=== PATIENT | female | born 1980 | race American Indian/Alaskan Native ===

== ENCOUNTER 2018-06-21 09:29 | Day surgery (SDC) | payer MEDICAID ==
[2018-06-21] MEDS ORDERED: ceFAZolin 2 GM in NACL 0.9% 100 ML IV ONE (10:30)
[2018-06-21] MEDS ORDERED: ANCEF/STERILE WATER 2 GM/20 ML 2 GM/20 ML SYRINGE IV NR (11:00)
[2018-06-21] MEDS ORDERED: MARCAINE 0.5% INFILTRATI ONE ×2 (11:09→12:31)
[2018-06-21] MEDS ORDERED: XYLOCAINE 1% 20 mL ONE (11:09)
--- NOTE | 2018-06-21 11:23 | Anesthesia Consultation ---
Anesthesia Consult and Med Hx Date of service: 06/21/18 - Airway Anesthetic Teeth Evaluation: Good ROM Head & Neck: Adequate Mental/Hyoid Distance: Adequate Mallampati Class: Class II Intubation Access Assessment: Probably Good - Pulmonary Exam CTA: Yes - Cardiac Exam Cardiac Exam: RRR - Pre-Operative Health Status ASA Pre-Surgery Classification: ASA3 Proposed Anesthetic Plan: General - Pulmonary Hx Smoking: No Hx Asthma: No COPD: No Hx Pneumonia: No Hx Sleep Apnea: No - Cardiovascular System Hx Hypertension: Yes (2014; took HCTZ this morning) Hx Coronary Artery Disease: No Hx Heart Attack/AMI: No Hx Cardia Arrhythmia: No Hx Peripheral Vascular Disease: No - Central Nervous System Hx Neuromuscular Disorder: No Hx Seizures: No Hx Psychiatric Problems: No - Gastrointestinal Hx Gastroesophageal Reflux Disease: Yes - Endocrine Hx Renal Disease: No Hx End Stage Renal Disease: No Hx Cirrhosis: No Hx Liver Disease: No Hx Insulin Dependent Diabetes: No Hx Non-Insulin Dependent Diabetes: No Hx Hypothyroidism: No Hx Hyperthyroidism: No - Hematic Hx Anemia: No Hx Sickle Cell Disease: No - Other Systems Hx Alcohol Use: No Hx Substance Use: No Hx Cancer: No Hx Obesity: Yes (BMI 46.4) - Additional Comments Anesthesia Medical History Comments: No previous surgery, No FHAC
--- NOTE | 2018-06-21 11:24 | Anesthesia Day of Surgery ---
Anesthesia Day of Surgery - Day of Surgery Patient Examined: Yes Patient H&P Reviewed: Yes Patient is NPO: Yes Beta Blockers: No (n/a) Cardiac Clearance: No (n/a) Pulmonary Clearance: No (n/a)
[2018-06-21] MEDS ORDERED: NEURONTIN PO NR (11:28)
[2018-06-21] MEDS ORDERED: DILAUDID IV PRN (11:49)
[2018-06-21] MEDS ORDERED: BENADRYL ONE (11:57)
[2018-06-21] MEDS ORDERED: DILAUDID ONE (11:57)
[2018-06-21] MEDS ORDERED: DIPRIVAN 10 MG/ML IV ONE (11:58)
[2018-06-21] MEDS ORDERED: LACTATED RINGERS 1,000 ML IV SCH (12:00)
[2018-06-21] MEDS ORDERED: TRANSDERM-SCOP TD NR (12:00)
[2018-06-21] MEDS ORDERED: VERSED IV ONE (12:00)
[2018-06-21] MEDS ORDERED: XYLOCAINE MPF 2% ONE (12:03)
[2018-06-21] MEDS ORDERED: ZEMURON IV ONE (12:03)
[2018-06-21] MEDS ORDERED: XYLOCAINE 1% 20 mL INFILTRATI ONE (12:31)
[2018-06-21] MEDS ORDERED: WATER FOR IRRIG STERILE IR ONE (12:32)
--- NOTE | 2018-06-21 13:20 | Short Stay Summary ---
Short Stay Documentation Date of service: 06/21/18 - History Principal diagnosis: cholelithiasis symptomatic H&P: obtained from office - Allergies and Medications Current Medications: Allergies No Known Allergies Allergy (Verified 06/19/18 16:33) Home Medications Medication Instructions Recorded Confirmed Last Taken Type Aspirin EC [Aspirin Enteric Coated 81 mg PO QDAY 06/19/18 06/19/18 Unknown His tory TAB] Famotidine 20 mg PO BIDAC 06/19/18 06/19/18 Unknown History Ondansetron [Zofran TAB] 4 mg PO Q8HR PRN 06/19/18 06/19/18 Unknown History hydroCHLOROthiazide 12.5 mg PO DAILY 06/19/18 06/19/18 Unknown History [Hydrochlorothiazide] metroNIDAZOLE [Flagyl TAB] 500 mg PO TID 06/19/18 06/19/18 Unknown History Active Medications Hydromorphone HCl (Dilaudid) 0.5 mg IV Q10MIN PRN PRN Reason: Pain , Severe (7-10) Stop: 06/21/18 23:59 Cefazolin Sodium (Ancef/Sterile Water 2 Gm/20 Ml) 2 gm in 20 mls @ 80 mls/hr IV PREOP NR Stop: 06/21/18 16:00 Lactated Ringer's (Lactated Ringers) 1,000 mls @ 100 mls/hr IV DIRECT VIVIANA Last Admin: 06/21/18 11:40 Dose: 100 mls/hr Documented by: Scopolamine (Transderm-Scop) 1 each TD PREOP NR Stop: 06/21/18 20:00 Last Admin: 06/21/18 11:45 Dose: 1 each Documented by: - Brief post op/procedure progress note Date of procedure: 06/21/18 Pre-op diagnosis: calculus of the gallbladder without cholecystitis or obstruction Post-op diagnosis: same Procedure: robotic assisted cholecystectomy Anesthesia: GETA, local Findings: gallbladder with evidence of chronic inflammation and packed with stones Surgeon: ZAMZAM GARY Estimated blood loss: minimal Pathology: list (GALLBLADDER) Specimen disposition: to lab Condition: stable - Hospital course Hospital course: Pt was observed in PACU and discharged to home in stable condition once criteria met - Disposition Condition at discharge: Good Disposition: DC-01 TO HOME OR SELFCARE Short Stay Discharge Plan Activity: other (no heavy lifting, no driving if taking prescription pain medications) Diet: regular Wound: open to air Additional Instructions: SEE PRINTED DISCHARGE INSTRUCTIONS Follow up with: BANDAR GERONIMO MD [Primary Care Provider] - 7 Days ZAMZAM GARY DO [Staff Physician] - 14 Days Prescriptions: HYDROcodone/APAP 5-325 [[place] 5/325] 1 each PO Q6HR PRN #20 tablet PRN Reason: Pain
[2018-06-21] MEDS ORDERED: ROBINUL ONE (13:38)
[2018-06-21] MEDS ORDERED: ZOFRAN ONE (13:38)
[2018-06-21] MEDS ORDERED: BLOXIVERZ ONE (13:38)
[2018-06-21] MEDS ORDERED: NORCO 5/325 ONE (14:57)
--- NOTE | 2018-06-21 14:58 | Post Anesthesia Evaluation ---
- Post Anesthesia Evaluation Patient Participated: Yes Airway Patent: Yes Stable Respiratory Function: Yes Nausea/Vomiting: No Temp > 96.8F: Yes Pain Manageable: Yes Adequeate Hydration: Yes Anesthesia Complications: No
[2018-06-21] MEDS ORDERED: NORCO 5/325 PO PRN (15:00)
[2018-06-21 21:40] VITALS: BP 140/76
--- NOTE | 2018-06-22 18:26 | Operative Report ---
PREOPERATIVE DIAGNOSIS: Calculus of the gallbladder without cholecystitis or obstruction. POSTOPERATIVE DIAGNOSIS: Calculus of the gallbladder without cholecystitis or obstruction. PROCEDURE: Robotic-assisted cholecystectomy. ANESTHESIA: General endotracheal anesthesia, local. FINDINGS: Gallbladder with evidence of chronic inflammation and packed with stones. SURGEON: Shelley Butler DO REGISTERED DIETETIC TECHNICIAN: NORMAN Valentine ESTIMATED BLOOD LOSS: Minimal. PATHOLOGY: Gallbladder. SPECIMEN: Disposition to lab. CONDITION AND DISPOSITION: The patient is stable to PACU. HISTORY OF PRESENT ILLNESS AND INDICATIONS: The patient is a 37-year-old female, who was seen in the office for evaluation of her gallbladder. She was found to have right upper quadrant pain along with imaging findings consistent with cholelithiasis. After a thorough history and review of her labs and imaging, it was recommended that she undergo cholecystectomy. All risks, benefits, alternatives of surgery were discussed with the patient along with the robotic, laparoscopic, open approaches. All questions were answered and consent obtained. PROCEDURE IN DETAIL: The patient was identified in the preoperative area and taken back to the operating room and placed on the operating table in supine position. After anesthesia was induced, bilateral arms were tucked with all bony prominences padded. Abdomen was prepped and draped in the usual sterile fashion and timeout was performed. Local anesthetic was infiltrated into all skin incision sites. A stab incision was made in the left upper quadrant through which a Veress needle was inserted. The Veress needle position was confirmed using the saline drop test and the abdomen insufflated to 15 mmHg. The Veress needle was then removed and the incision elongated and through this, a 5 mm Optiview trocar was placed. The abdomen was inspected and there was no underlying injury to any of the abdominal contents. The patient did have prior surgery around the umbilicus and this area was free of adhesions. Therefore, a 12 mm incision was made above the umbilicus through which a 12 mm balloon trocar was placed under direct visualization. Two additional robotic 8 mm trocars were then placed in the right upper quadrant, in the right mid abdomen, and in the right lateral abdomen under direct visualization. The 5 mm left upper quadrant trocar was replaced with an 8 mm robotic trocar under direct visualization. The patient was placed in reverse Trendelenburg and tilted to the left and the gallbladder was visualized. There were some omental adhesions to the gallbladder and the gallbladder was contracted and filled with stones. The robot was then docked with the robotic hook in arm #1 and a Cadiere grasper in arm #2 and ProGrasp in arm #3. Ray-Yaya was placed through the 12 mm incision into the abdomen and the camera was installed. All instruments were advanced under direct visualization. The surgeon was then transferred to the console. The gallbladder fundus was grasped and lifted cephalad above the liver. Adhesions from the omentum to the gallbladder were taken down using monopolar electrocautery. Once the neck of the gallbladder was identified, the cystic duct and artery were carefully skeletonized using the hook. Once the cystic duct and artery were skeletonized and seen as only two structures entering the gallbladder, the medial and lateral peritoneal reflections of the gallbladder were also dissected to obtain the critical view. Once again, the cystic duct and artery were the only two structures seen entering the gallbladder. Therefore, 2 Hem-o-molly clips were placed on the proximal aspect of the cystic duct and 1 distally and 2 on the cystic artery proximally and 1 distally. The cystic duct and artery were then transected in between the clips. The gallbladder was dissected off the liver bed using hook electrocautery and placed in the right upper quadrant. The liver bed was inspected for bleeding and hemostasis was achieved with electrocautery. The clips were visualized and intact. There was no bleeding from the gallbladder fossa or from the area of the clips. There was no bile leakage. The robot was then undocked and the patient placed in neutral position. The remainder of the procedure was performed laparoscopically. The gallbladder was placed into an EndoCatch bag and removed via the 12 mm port. The 12 mm port fascia was closed with 0 Vicryl interrupted sutures using the Gerald-Lalitha device. The remaining ports were removed under direct visualization and the abdomen slowly desufflated. The skin incisions were once again infiltrated with local anesthetic and the skin incisions closed with 4-0 Monocryl subcuticular stitches and skin glue. At the end of the case, all sponge, instrument, sharp counts were correct x 2. The patient was awoken from anesthesia, extubated, and taken to PACU in stable condition. JOB# [id number] NK/NTS
== END 2018-06-21 09:30 | disposition home or self-care (01) ==
LOC: OR 09:29
PROVIDERS: ATTEND Surgery
DX: K80.10 Calculus of gallbladder with chronic cholecystitis without obstruction (principal); I10 Essential (primary) hypertension; K21.9 Gastro-esophageal reflux disease without esophagitis; E66.9 Obesity, unspecified; Z68.42 Body mass index [BMI] 45.0-49.9, adult; Z98.891 History of uterine scar from previous surgery; Z98.890 Other specified postprocedural states; Z79.899 Other long term (current) drug therapy; Z79.82 Long term (current) use of aspirin; Z83.3 Family history of diabetes mellitus; Z82.49 Family history of ischemic heart disease and other diseases of the circulatory system; Z80.8 Family history of malignant neoplasm of other organs or systems
CPT/HCPCS: 47562; 81025; 82803; 88304; J0690; J1170; J1200; J2250; J2405; J2704; J2710; J7120; S2900